=== PATIENT | male | born 1950 | race Caucasian/White ===

== ENCOUNTER 2025-06-03 13:18 | Inpatient (IN) ==
[2025-06-03] MEDS: 0.9 % SODIUM CHLORIDE 1,000 ML IV SCH (14:02)
[2025-06-03 14:38] LABS: Basophils # (Auto) 0.03 K/mcL (0.00-0.30); Basophils % (Auto) 0.3 % (0.0-2.0); Eosinophils # (Auto) 0.14 K/mcL (0.00-0.70); Eosinophils % (Auto) 1.5 % (0.0-7.0); Hematocrit 45.6 % (40.1-51.0); Hemoglobin 15.6 g/dL (13.7-17.5); Lymphocytes # (Auto) 1.97 K/mcL (1.50-4.80); Lymphocytes % (Auto) 21.0 % (15.5-49.0); Mean Corpuscular HGB Conc 34.2 g/dL (31.0-36.0); Monocytes # (Auto) 1.01 K/mcL (0.10-0.90); Monocytes % (Auto) 10.8 % (1.0-12.0); Neutrophils % (Auto) 66.1 % (38.0-78.0); Platelet Count 114 K/mcL (140-440); RBC 5.05 M/mcL (4.63-6.08); WBC 9.4 K/mcL (4.5-11.0)
[2025-06-03] MEDS: LACTULOSE 20 GM/30 ML ORAL.SOL PO ONE ×2 (14:38→16:12)
[2025-06-03 15:19] LABS: Thyroid Stimulating Hormone 1.19 uIU/mL (0.27-5.01)
[2025-06-03 15:20] LABS: Barbiturate Screen,Urine None detected; Benzodiazepines Screen,Urine None detected; Fentanyl, Urine Screen None Detected; Opiate Screen,Urine None detected; Oxycodone, Urine Screen Suspect Positive; Phencyclidine Screen,Urine None detected
[2025-06-03 15:20] LABS: ALT/SGPT 45 U/L (<40); AST/SGOT 59 U/L (<40); Albumin 3.6 gm/dL (3.2-5.2); Albumin/Globulin Ratio 0.8 (1.0-2.3); Alkaline Phosphatase 121 U/L (39-117); Anion Gap 14.0 (8.0-16.0); Bilirubin,Total 1.9 mg/dL (0.1-1.0); Blood Urea Nitrogen 32 mg/dL (8-23); Calcium 10.8 mg/dL (8.6-10.4); Carbon Dioxide 22 mmol/L (22-30); Chloride 96 mmol/L (96-108); Globulin 4.5 gm/dL (2.2-3.7); Glucose 163 mg/dL (70-105); Potassium 5.6 mmol/L (3.3-5.1); Sodium 132 mmol/L (133-145)
[2025-06-03 15:22] LABS: Bacteria,Urine 0 /hpf (0); Bilirubin,Urine NEGATIVE (Negative); Color,Urine YELLOW; Glucose,Urine (UA) >=1000 mg/dL (Negative); Ketones,Urine TRACE mg/dL (Negative); Leukocyte Esterase,Urine NEGATIVE /uL (Negative); Mucus,Urine Few /hpf; PH,Urine 6.0 (5.0-9.0); Protein,Urine NEGATIVE (Negative); Specific Gravity,Urine 1.015 (1.000-1.035); Urobilinogen,Urine 2.0 mg/dL
[2025-06-03] MEDS ORDERED: IPRATROPIUM/ALBUTEROL 3 ML AMPUL.NEB NEB PRN (19:23)
[2025-06-03] MEDS ORDERED: DEXTROSE 31 GM ORAL.SUSP PO PRN (19:23)
[2025-06-03] MEDS ORDERED: DEXTROSE 50% 50 ML VIAL IV PRN (19:23)
[2025-06-03] MEDS ORDERED: ONDANSETRON 4 MG/2 ML VIAL IV PRN (19:23)
[2025-06-03] MEDS: INSULIN LISPRO 1 UNIT/0.01 ML UNIT SQ SCH (20:15)
[2025-06-03] MEDS: FUROSEMIDE 20 MG TABLET PO SCH (20:16)
[2025-06-03] MEDS: SENNOSIDES 1 TABLET PO SCH (20:16)
[2025-06-03] MEDS: LACTULOSE 20 GM/30 ML ORAL.SOL PO SCH (20:16)
[2025-06-03] MEDS: DOCUSATE SODIUM 100 MG CAPSULE PO SCH (20:16)
[2025-06-03] MEDS: 0.9 % SODIUM CHLORIDE 10 ML SYRINGE IV SCH (20:16)
[2025-06-03] MEDS: REMDESIVIR 200 MG in 0.9 % SODIUM CHLORIDE 250 ML IV SCH (21:26)
[2025-06-04 07:26] LABS: Basophils # (Auto) 0.04 K/mcL (0.00-0.30); Basophils % (Auto) 0.5 % (0.0-2.0); Eosinophils # (Auto) 0.24 K/mcL (0.00-0.70); Eosinophils % (Auto) 2.7 % (0.0-7.0); Hematocrit 42.2 % (40.1-51.0); Hemoglobin 14.3 g/dL (13.7-17.5); Lymphocytes # (Auto) 1.66 K/mcL (1.50-4.80); Lymphocytes % (Auto) 18.9 % (15.5-49.0); Mean Corpuscular HGB Conc 33.9 g/dL (31.0-36.0); Monocytes # (Auto) 0.90 K/mcL (0.10-0.90); Monocytes % (Auto) 10.3 % (1.0-12.0); Neutrophils % (Auto) 67.4 % (38.0-78.0); Platelet Count 104 K/mcL (140-440); RBC 4.64 M/mcL (4.63-6.08); WBC 8.8 K/mcL (4.5-11.0)
[2025-06-04 07:42] LABS: ALT/SGPT 37 U/L (<40); AST/SGOT 52 U/L (<40); Albumin 3.3 gm/dL (3.2-5.2); Albumin/Globulin Ratio 0.8 (1.0-2.3); Alkaline Phosphatase 110 U/L (39-117); Anion Gap 10.0 (8.0-16.0); Bilirubin,Total 1.7 mg/dL (0.1-1.0); Blood Urea Nitrogen 27 mg/dL (8-23); Calcium 9.5 mg/dL (8.6-10.4); Carbon Dioxide 22 mmol/L (22-30); Chloride 102 mmol/L (96-108); Globulin 4.0 gm/dL (2.2-3.7); Glucose 94 mg/dL (70-105); Potassium 4.2 mmol/L (3.3-5.1); Sodium 134 mmol/L (133-145)
[2025-06-04 07:53] LABS: Estimated Average Glucose(eAG) 192 mg/dL; Hemoglobin A1C 8.3 % Hgb (4.0-6.0)
[2025-06-04] MEDS: ACETAMINOPHEN 325 MG TABLET PO PRN (11:07)
[2025-06-04] MEDS: REMDESIVIR 100 MG in 0.9 % SODIUM CHLORIDE 250 ML IV SCH (17:53)
[2025-06-04] MEDS: TAMSULOSIN 0.4 MG CAPSULE PO SCH (20:40)
[2025-06-04] MEDS: GABAPENTIN 300 MG CAPSULE PO SCH (20:40)
[2025-06-04] MEDS: PROPRANOLOL 10 MG TABLET PO SCH (20:40)
[2025-06-04] MEDS: INSULIN GLARGINE, HUMAN 1 UNIT/0.01 ML SQ SCH (20:41)
[2025-06-04] MEDS: CYCLOBENZAPRINE 10 MG TABLET PO SCH (20:43)
[2025-06-04] MEDS: VITAMIN D3 25 MCG TABLET PO SCH ×2 (22:45→22:46)
[2025-06-05 07:25] LABS: ALT/SGPT 38 U/L (<40); AST/SGOT 49 U/L (<40); Albumin 3.3 gm/dL (3.2-5.2); Albumin/Globulin Ratio 0.8 (1.0-2.3); Alkaline Phosphatase 109 U/L (39-117); Anion Gap 10.0 (8.0-16.0); Bilirubin,Total 1.5 mg/dL (0.1-1.0); Blood Urea Nitrogen 23 mg/dL (8-23); Calcium 9.4 mg/dL (8.6-10.4); Carbon Dioxide 24 mmol/L (22-30); Chloride 101 mmol/L (96-108); Globulin 3.9 gm/dL (2.2-3.7); Glucose 137 mg/dL (70-105); Potassium 4.4 mmol/L (3.3-5.1); Sodium 135 mmol/L (133-145)
[2025-06-05] MEDS: OMEPRAZOLE 20 MG CAPSULE PO SCH (07:45)
[2025-06-05 07:58] LABS: Basophils # (Auto) 0.03 K/mcL (0.00-0.30); Basophils % (Auto) 0.5 % (0.0-2.0); Eosinophils # (Auto) 0.14 K/mcL (0.00-0.70); Eosinophils % (Auto) 2.3 % (0.0-7.0); Hematocrit 39.9 % (40.1-51.0); Hemoglobin 13.6 g/dL (13.7-17.5); Lymphocytes # (Auto) 1.56 K/mcL (1.50-4.80); Lymphocytes % (Auto) 26.0 % (15.5-49.0); Mean Corpuscular HGB Conc 34.1 g/dL (31.0-36.0); Monocytes # (Auto) 0.70 K/mcL (0.10-0.90); Monocytes % (Auto) 11.7 % (1.0-12.0); Neutrophils % (Auto) 59.2 % (38.0-78.0); Platelet Count 82 K/mcL (140-440); RBC 4.37 M/mcL (4.63-6.08); WBC 6.0 K/mcL (4.5-11.0)
[2025-06-05] MEDS: SPIRONOLACTONE 25 MG TABLET PO SCH (08:51)
[2025-06-05] MEDS: DONEPEZIL 10 MG TABLET PO SCH (08:51)
[2025-06-05] MEDS: CYANOCOBALAMIN (VITAMIN B-12) 500 MCG TABLET PO SCH (08:51)
[2025-06-05] MEDS: FUROSEMIDE 80 MG TABLET PO SCH (08:52)
[2025-06-05] MEDS: ASCORBIC ACID 500 MG TABLET PO SCH (08:52)
[2025-06-05] MEDS: MULTIVIT,THER IRON,CA,FA & MIN 1 TABLET PO SCH (08:52)
[2025-06-05] MEDS ORDERED: DONEPEZIL 5 MG TABLET PO SCH (09:00)
[2025-06-05] MEDS ORDERED: VITAMIN D3 25 MCG TABLET PO SCH (09:00)
[2025-06-05] MEDS ORDERED: SPIRONOLACTONE 25 MG TABLET PO SCH (09:00)
[2025-06-06 06:39] LABS: ALT/SGPT 31 U/L (<40); AST/SGOT 45 U/L (<40); Albumin 3.0 gm/dL (3.2-5.2); Albumin/Globulin Ratio 0.8 (1.0-2.3); Alkaline Phosphatase 105 U/L (39-117); Anion Gap 10.0 (8.0-16.0); Bilirubin,Total 1.5 mg/dL (0.1-1.0); Blood Urea Nitrogen 19 mg/dL (8-23); Calcium 9.0 mg/dL (8.6-10.4); Carbon Dioxide 21 mmol/L (22-30); Chloride 99 mmol/L (96-108); Globulin 3.9 gm/dL (2.2-3.7); Glucose 126 mg/dL (70-105); Potassium 3.9 mmol/L (3.3-5.1); Sodium 130 mmol/L (133-145)
[2025-06-06 06:40] LABS: Basophils # (Auto) 0.02 K/mcL (0.00-0.30); Basophils % (Auto) 0.3 % (0.0-2.0); Eosinophils # (Auto) 0.20 K/mcL (0.00-0.70); Eosinophils % (Auto) 3.0 % (0.0-7.0); Hematocrit 41.8 % (40.1-51.0); Hemoglobin 13.5 g/dL (13.7-17.5); Lymphocytes # (Auto) 1.90 K/mcL (1.50-4.80); Lymphocytes % (Auto) 28.2 % (15.5-49.0); Mean Corpuscular HGB Conc 32.3 g/dL (31.0-36.0); Monocytes # (Auto) 0.83 K/mcL (0.10-0.90); Monocytes % (Auto) 12.3 % (1.0-12.0); Neutrophils % (Auto) 55.9 % (38.0-78.0); Platelet Count 66 K/mcL (140-440); RBC 4.44 M/mcL (4.63-6.08); WBC 6.7 K/mcL (4.5-11.0)
[2025-06-06 07:18] VITALS: TEMP 97.5; O2SAT 98
== END 2025-06-06 09:55 | DRG 178 ==
LOC: ED 13:18 → MEDSUR 19:21
PROVIDERS: ADMIT Internal Medicine; ATTEND Internal Medicine